=== PATIENT | male | born 1975 | race Caucasian/White ===

== ENCOUNTER 2017-09-12 13:07 | Emergency (ER) | payer MEDICAID, OTHER, SELFPAY ==
[~2017-09-12] VITALS: Ht 177.8 cm; Wt 69.0 kg
[2017-09-12 13:15] VITALS: BP 144/80
[2017-09-12] MEDS ORDERED: BACITRACIN ZINC OINT 500U/GM, 0.9 GM ONE (14:07)
== END 2017-09-12 14:53 | disposition home or self-care (01) ==
LOC: ED 14:40
DX: L03.011 Cellulitis of right finger (principal)
CPT/HCPCS: 99283